=== PATIENT | male | born 1985 | race Caucasian/White ===

== ENCOUNTER 2024-02-13 10:00 | Emergency (ER) | payer SELFPAY ==
[2024-02-13 10:07] VITALS: BP 153/91; PULSE 111; TEMP 36.3; O2SAT 96; BMI 24.3
[2024-02-13 10:13] VITALS: O2SAT 96
--- NOTE | 2024-02-13 10:19 | XR_ITS ---
The [address] [address] Patient Name: BARBARA SONG MRN: [id number] date: 1985 Sex: M Assigned Patient Location: ER Current Patient Location: ER Accession/Order Number: [id number] Exam Date: 02/13/2024 10:30 Report Date: 02/13/2024 11:51 At the request of: DARRIN WATSON Procedure: XR ribs RT min 3V w CXR1V RIGHT RIBS SERIES X-RAY, 5 VIEWS AND CHEST X-RAY ONE VIEW HISTORY: Pain. COMPARISON: None. FINDINGS: There is an acute minimally displaced right posterior lateral eighth rib fracture. There is a possible nondisplaced acute fracture of the right posterior lateral seventh rib. The lungs are clear. There are no pleural effusions. There is no pneumothorax. XR/XR ribs RT min 3V w CXR1V IMPRESSION: Acute minimally displaced right posterior lateral eighth rib fracture with possible nondisplaced acute fracture of the right posterior lateral seventh rib. No pneumothorax. Electronically authenticated by: GUERA CASTRO Date: 02/13/2024 11:51
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
[2024-02-13 12:00] VITALS: BP 120/77; PULSE 64; O2SAT 97
== END 2024-02-13 12:17 | disposition home or self-care (01) ==
PROVIDERS: Emergency Provider Emergency Medicine
DX: S22.31XA Fracture of one rib, right side, initial encounter for closed fracture (principal); V18.0XXA Pedal cycle driver injured in noncollision transport accident in nontraffic accident, initial encounter
CPT/HCPCS: 71101; 94667; 99283

== ENCOUNTER 2024-03-05 14:04 | Emergency (ER) | payer SELFPAY ==
[2024-03-05 14:13] VITALS: BP 160/100; PULSE 94; TEMP 36.4; O2SAT 98; BMI 23.3
[2024-03-05 14:24] VITALS: PULSE 66
--- NOTE | 2024-03-05 15:12 | XR_ITS ---
The [address] [address] Patient Name: BARBARA SONG MRN: [id number] date: 1985 Sex: M Assigned Patient Location: ER Current Patient Location: Accession/Order Number: [id number] Exam Date: 03/05/2024 15:38 Report Date: 03/05/2024 16:27 At the request of: FUAD MAYNARD Procedure: XR chest 2V EXAM: XR chest 2V COMPARISON: 02/13/2024 CLINICAL INDICATION: Pain. FINDINGS: The cardiomediastinal silhouette is within normal limits. No focal consolidation. No pleural effusion. No pneumothorax. No evidence of acute osseous abnormality on today's exam. Subacute nondisplaced right posterior lateral eighth rib fracture better seen on prior rib series. XR/XR chest 2V IMPRESSION: No acute findings. Electronically authenticated by: OLIVIER ALVARADO Date: 03/05/2024 16:27
--- NOTE | 2024-03-05 15:16 | ED_ITS ---
<Statement entered by Emeli Velasco MD - 03/05/24 18:03> This documentation has been reviewed and approved. HPI HPI - General Adult General Chief complaint: Extremity Injury, Upper Stated complaint: RIGHT SIDE RIB PAIN Time Seen by Provider: 03/05/24 15:06 Source: patient Mode of arrival: walk-in Limitations: no limitations History of Present Illness HPI narrative: Is a 38-year-old male presents to the ER with concerns of right-sided rib pain and missing work. Patient was seen in the ER on 02/13/2024 and diagnosed with 2 right rib fractures. Patient notes symptoms were doing better and he was recommended to be off work for approximately 1 month. Patient states he just got hired over a week ago and upon starting new employment he was lifting with his right arm and noticing increased pain in the right chest wall. He denies new injury. States he no longer has his pain medication. He has not taken any Motrin or Tylenol. He notes some shortness of breath only with increased activity and pain to touch. Patient notes pain feels similar to his previous fractured ribs. He denies any fever or cough. He is concerned as he is on a probationary term and there is no light duty at his work to prevent heavy lifting. The patient appears in no distress and does not drive, he walks everywhere. Patient appears mostly concerned about protecting his job for which she was recently hired. Treatments prior to arrival: Reports none Related Data Previous Rx's ?Medication ?Instructions ?Recorded ibuprofen 600 mg tablet 600 mg PO TID PRN pain #30 tabs 03/05/24 Allergies Allergy/AdvReac Type Severity Reaction Status Date / Time No Known Drug Allergies Allergy Verified 02/13/24 10:07 Opioid HPI Opioid Management Most Recent Opioid Data: No Data to Display Review of Systems ROS Constitutional Denies: fever Eyes Denies: change in vision Ears, nose, mouth, and throat Denies: throat pain or neck pain Cardiovascular Reports: chest pain (right sided) Respiratory Reports: shortness of breath; Denies: cough, wheezing, pain on inspiration or chest congestion Gastrointestinal Denies: abdominal pain, nausea or vomiting Musculoskeletal Denies: back pain, neck pain, extremity pain or extremity swelling Integumentary/Breast Denies: rash, itching or redness Neurological Denies: headache Psychiatric Denies: anxiety or mood swings Allergic/Immunologic Denies: hives Exam Narrative Exam Narrative: Nurses notes and vital signs reviewed and patient is not hypoxic. General: The patient appears well and in no apparent distress. Patient is resting comfortably on cart. Skin: Warm, dry, no pallor noted. Head: Normocephalic, atraumatic Neck: Supple, trachea mid-line, no tenderness, no lymphadenopathy Eye: Pupils are equal, round and reactive to light, EOMI Ears, Nose, Mouth, and Throat: External exam unremarkable. Cardiovascular: Regular Rate and Rhythm Respiratory: Patient is in no distress, no accessory muscle use, lungs are clear to auscultation, no wheezing, rales or rhonchi. Chest Wall: Minimal right-sided chest wall discomfort, no palpable crepitus, no evidence of bruising. No paradoxical chest motion. Back: non-tender, no CVA tenderness Musculoskeletal: normal ROM, no tenderness, no swelling GI: Normal bowel sounds, no tenderness to palpation, no masses appreciated. No rebound, guarding, or rigidity noted. Neurological: A&O x4 Psychiatric: Cooperative Constitutional Vital Signs, click to edit/add: Last Vital Signs Temp 97.6 F 03/05/24 14:13 Pulse 66 03/05/24 14:24 Resp 18 03/05/24 14:13 BP 160/100 H 03/05/24 14:13 Pulse Ox 98 03/05/24 14:13 O2 Del Method Room Air 03/05/24 14:13 Course Vital Signs Vital signs: Vital Signs Temperature 97.6 F 03/05/24 14:13 Pulse Rate 94 H 03/05/24 14:13 Respiratory Rate 18 03/05/24 14:13 Blood Pressure 160/100 H 03/05/24 14:13 Pulse Oximetry 98 03/05/24 14:13 Oxygen Delivery Method Room Air 03/05/24 14:13 Temperature 97.6 F 03/05/24 14:13 Pulse Rate 66 03/05/24 14:24 Respiratory Rate 18 03/05/24 14:13 Blood Pressure 160/100 H 03/05/24 14:13 Pulse Oximetry 98 03/05/24 14:13 Oxygen Delivery Method Room Air 03/05/24 14:13 Medical Decision Making MDM Narrative Medical decision making narrative: Patient recommended to Tylenol, ice, Motrin. We discussed his pain, prior fractures. Patient admits that he went to work too soon likely reexacerbating previous injury. 2 view chest x-ray performed. We discussed the need to follow-up with the PCP to discuss when he is cleared to return to work. I will give him 1 week off work so that he can establish follow-up with a new PCP clinic. Patient states he has been turned away from the urgent cares due to the chronicity of his problems. Patient appears in no distress. Preliminary chest x-ray reviewed 2 view, no evidence of pneumothorax, no evidence of further displacement of rib fracture. Radiologist interpretation is pending. The patient is to followup with primary care physician in next 2-3 days or to return to the emergency department should any of the signs or symptoms worsen or new symptoms develop. Patient had questions answered. The patient agrees with the following Diagnosis and Treatment plan and the patient will be discharged home. Imaging Data Chest x-ray: My impression: Reviewed chest x-ray, no infiltrate, no pneumothorax. No evidence of worsening rib fracture right posterior lateral eighth and seventh. Discharge Plan Discharge Stand Alone Forms: Portal Instructions Chief Complaint: Extremity Injury, Upper Clinical Impression: Fracture of rib, Right-sided chest wall pain Patient Disposition: Home, Self-Care Time of Disposition Decision: 15:47 Condition: Good Prescriptions / Home Meds: New ibuprofen 600 mg tablet 600 mg PO TID PRN (Reason: pain) Qty: 30 0RF Print Language: Yi Instructions: Rib Fracture (ED) Referrals: Alberto Tenorio MD [Physician] - As soon as possible BINH GUZMAN [Nurse Practitioner] - As soon as possible Dilia Fry NP [Physician] - As soon as possible
[2024-03-05] MEDS: IBUPROFEN 600 MG TABLET PO (15:21)
[2024-03-05] MEDS: ACETAMINOPHEN 500 MG TABLET 1000 MG PO (15:21)
[2024-03-05 16:07] VITALS: BP 148/100; PULSE 67; O2SAT 98
== END 2024-03-05 16:09 | disposition home or self-care (01) ==
PROVIDERS: Emergency Provider Emergency Medicine
DX: R07.89 Other chest pain (principal); S22.41XD Multiple fractures of ribs, right side, subsequent encounter for fracture with routine healing; X58.XXXD Exposure to other specified factors, subsequent encounter
CPT/HCPCS: 71046; 99285

== ENCOUNTER 2025-06-26 10:52 | Emergency (ER) | payer BC, SELFPAY ==
[2025-06-26] VITALS (25 sets, daily range): BP systolic 110–179; BP diastolic 59–114; PULSE 90–112; TEMP 37.1; O2SAT 95–100; BMI 26.1
--- NOTE | 2025-06-26 11:05 | ECG_ITS ---
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 Measurements Intervals [place] Rate: 98 P: 71 MS: 152 QRS: 95 QRSD: 90 T: 65 QT: 342 QTc: 398 Interpretive Statements 1100 Sinus rhythm 7102 Moderate right axis deviation 9110 normal ECG Compared to ECG 06/26/2022 00:26:57 Sinus tachycardia no longer present Incomplete right bundle-branch block no longer present Electronically Signed On 06-26-2025 11:38:44 EST by SONYA HERNANDES M.D.
--- OUTSIDE RECORDS SUMMARY | 2025-06-26 12:04 | XMS_ITS | Patient Health Record ---
Author Organization [employer] [facility] Address [address] [place] [address] Support Name Relationship Address Phone IRENE PAZ Emergency Contact Unknown [phone]ONG Guarantor Unknown [phone] Reason For Referral No Information Medications Medication SIG (Take, Route, Frequency, Duration) Notes Start Date End Date Status Combigan 0.2-0.5 % Solution 1 drop into affected eye Ophthalmic twice a day (bid) ActiveLumigan 0.01 % Solution1 drop into affected eye in the evening Ophthalmic once a dayActiveLexapro 20 MG Tablet1 tablet Orally once a dayNot-Taking/PRN Geodon 40 MG Capsule1 capsule with food Orally daily; Duration: 30 day(s)Active Social History Tobacco Use: Social History Observation Description Date Details (start date - stop date) Former Smoker NA - NA Social History GeneralSocial InfoQuestionAnswerNotesDepression Screening (PHQ-9):Little interest or pleasure in doing thingsMore than half the daysFeeling down, depressed, or hopelessNearly every dayTrouble falling or staying asleep, or sleeping too muchNearly every dayFeeling tired or having little energyMore than half the daysPoor appetite or overeatingNearly every dayFeeling bad about yourself-or that you are a failure or have let yourself or your family down Several daysTrouble concentrating on things, such as reading the newspaper or watching televisionMore than half the daysMoving or speaking so slowly that other people could have noticed. Or the opposite being so fidgetyor restless that you have been moving around a lot more than usualNearly every dayThoughts that you would be better off , or of hurting yourself in some wayNot at all Total Ubpug53WslbaofrmsqlaBzkgtfskiu severe depressionTobacco Screen:Are you a: former smoker? How long has it been since you last smoked?1-5 yearsAlcohol Screening:Did you have a drink containing alcohol in the past year?Yes? How often did you have a drink containing alcohol in the past year?Four or more times a week (4 points)? How many drinks did you have on a typical day when you were drinking in the past year?3 or 4 (1 point)Ljjxsh0RozupaphqcohbtVyjywotk Problems Problem Type SNOMED Code ICD Code Onset Dates Problem Status W/U Status Risk Notes Problem Mixed bipolar affect mckay disorder, mild (604689072) Bipolar disorder, current episode mixed, mild (F31.61) Activeconfirmed Plan Of Treatment No Information Medical (General) History Medical History History ICD Code VERITO DEPRESSIONGLAUCOMASurgical History Surgery Date(Month/Year) ARTHOSCOPY left knee Hospitalization History Reason Date(Month/Year) Gastric lavage A couple concussions
--- OUTSIDE RECORDS SUMMARY | 2025-06-26 12:05 | XMS_ITS | Patient Health Record ---
Author Organization The [facility] in [place] Address [address] [place] [address] Care Team Providers Care Global Manager Name Role Phone Rachele Wan Primary Care Provider Allergies No Known Allergies Reason For Referral No Information Medications Medication SIG (Take, Route, Frequency, Duration) Notes Start Date End Date Status Combigan 0.2-0.5 % 1 drop into affected eye Opht halmic Twice a day ActiveLumigan 0.01 %1 drop into affected eye in the evening Ophthalmic Once a dayActive Social History Tobacco Use: Social History Observation Description Date Details (start date - stop date) Former Smoker 02/15/1997 - 02/15/2018 Tobacco Control (Standard) Question Answer Notes Tobacco use: Former smoker When did you start smoking?02/15/1997When did you stop smoking?02/15/2018AUDIT-C (Standard) Question Answer Notes Did you have a drink containing alcohol in the p ast year? Yes How often did you have six or more drinks on one occasion in the past year?Never (0 point)How many drinks did you have on a typical day when you were drinking in the past year?1 or 2 drinks (0 point)How often did you have a drink containing alcohol in the past year?2 to 3 times a week (3 points)Mtzoov3Hrsmjgszzgfruj Negative Problems Problem Type SNOMED Code ICD Code Onset Dates Problem Status W/U Status Risk Notes Problem Glaucoma (23485191) Glaucoma (H40.9) ActiveconfirmedProblemmigraine (disorder) (23690121)Migraines (G43.909)Active confirmedProblemMixed anxiety and depressive disorder (631523380)Anxiety and depression (F41.9)Activeconfirmed Plan Of Treatment Pending Test Test Name Order Date XR chest 2V 04/05/2024 Insurance Providers Payer Name Payer Address Payer Phone Subscriber Number Group Number Insured Name Patient Relationship to Insured Coverage Start Date Coverage End Date [employer] PPO PLUS LOCAL PLAN [address] [place] [address] [id number] Matt Bergelf - patient is the insured Medical (General) History Medical History History ICD Code Glaucoma H40.9 Migraines G43.909 Anxiety and depression F41.9 Surgical History Surgery Date(Month/Year) [place] teeth left knee arthroscopic surgery
[2025-06-26 12:39] LABS: Hematocrit 42.5 % (42.0-54.0); Hemoglobin 14.7 g/dL (14.0-18.0); Immature Granulocytes Abs Auto 0.01 10^3/uL (0.00-0.03); Immature Granulocytes Pct Auto 0.1 % (0.0-0.5); Lymphocytes Absolute Auto 1.0 10^3/uL (1.2-3.8); Mean Corpuscular HGB Conc 34.6 g/dL (29.9-35.2); Mean Corpuscular Hemoglobin 30.8 pg (25.9-34.0); Mean Corpuscular Volume 89.1 fL (80.0-94.0); Platelet Count 312 10^3/uL (150-450); Red Blood Count 4.77 10^6/uL (4.70-6.10); White Blood Count 7.2 10^3/uL (4.0-11.0)
[2025-06-26] MEDS: 0.9 % SODIUM CHLORIDE 1,000 ML 1000 ML IV (12:47)
[2025-06-26 12:54] LABS: Alanine Aminotransferase 57 U/L (16-63); Albumin Globulin Ratio 1.2; Albumin Level 4.2 g/dL (3.4-5.0); Alkaline Phosphatase 93 U/L (46-116); Anion Gap 14.2; Aspartate Amino Transferase 38 U/L (15-37); Blood Urea Nitrogen 15.0 mg/dL (7.0-18.0); Calcium 9.5 mg/dL (8.5-10.1); Carbon Dioxide 24.8 mmol/L (21.0-32.0); Chloride 99 mmol/L (98-107); Estimated GFR (African America >60 (>=60 mL/min/1.73m^2); Estimated GFR (Non-African Ame >60 (>=60 mL/min/1.73m^2); Globulin 3.5 g/dL; Glucose 143 mg/dL (74-106); Potassium 4.0 mmol/L (3.5-5.1); Sodium 134 mmol/L (136-145); Total Protein 7.7 g/dL (6.4-8.2)
--- NOTE | 2025-06-26 13:20 | XR_ITS ---
[place] [id number] Patient Name: BARBARA SONG MRN: [id number] date: 1985 Sex: M Assigned Patient Location: ER Current Patient Location: ED.MAIN Accession/Order Number: [id number] Exam Date: 06/26/2025 13:13 Report Date: 06/26/2025 13:41 At the request of: JEFRY RODRIGUEZ DO Procedure: XR chest 2V XR chest 2V 06/26/2025 1:21 PM SIGNS AND SYMPTOMS: ^chest pain PROTOCOL: Frontal and lateral radiograph of the chest COMPARISON: 03/05/2024 FINDINGS: The trachea is midline. The heart and mediastinal structures are within normal limits. The lung parenchyma is clear. The bony thorax is intact. Remote healed or healing right-sided rib fractures are redemonstrated bilaterally. XR/XR chest 2V IMPRESSION: No acute cardiopulmonary pathology. Impression dictated by: Chad Blunt M.D. 06/26/2025 1:41 PM Dictation Location: [facility] Electronically authenticated by: [id number] Date: 06/26/2025 13:41
[2025-06-26 13:26] LABS: SARS-CoV-2 Ag NEGATIVE (NEGATIVE)
[2025-06-26] MEDS: AZITHROMYCIN 250 MG TABLET 500 MG PO (13:46)
--- NOTE | 2025-06-26 16:56 | ED_ITS ---
HPI HPI - General Adult General Chief complaint: Chest Pain Stated complaint: CHEST PAIN SOB L SIDE NUMBNESS Time Seen by Provider: 06/26/25 11:52 Source: patient Mode of arrival: walk-in History of Present Illness HPI narrative: Patient is a 40-year-old male presenting to the emergency department for 3-day history of upper respiratory symptoms such as cough, congestion, and myalgias. He states that over the last 24 hours he has been having increasing shortness of breath and he feels dehydrated. He has been drinking plenty of fluids, but still feels rundown. He is otherwise healthy with no chronic medical conditions. He does not smoke and has no history of asthma/COPD. He has no current chest pain. He has no nausea or vomiting. Related Data Previous Rx's ?Medication ?Instructions ?Recorded azithromycin 250 mg tablet 250 mg PO DAILY 5 days #5 t abs 06/26/25 (Zithromax Z-Josh) Allergies Allergy/AdvReac Type Severity Reaction Status Date / Time No Known Drug Allergies Allergy Verified 02/13/24 10:07 Review of Systems ROS Status of ROS 10 or more systems reviewed and unremark able except as noted in history and below PFSH PFSH Social History Little interest or pleasure in doing things: not at all Feeling down, depressed, or hopeless: not at all Exam Narrative Exam Narrative: CONSTITUTIONAL: Patient appears ill but nontoxic, answering questions and following commands appropriately SKIN: Was warm and mildly diaphoretic. EYES: Sclerae white. EARS, NOSE, THROAT: Moist oral mucosa. No tonsillar enlargement or exudates. RESPIRATORY: Clear to auscultation bilaterally, no wheezes, crackles, or stridor, no use of accessory muscles CARDIOVASCULAR: Tachycardic rate and regular rhythm. There is no S3, S4, murmur, rub. GASTROINTESTINAL: Abdomen is soft, nontender, nondistended. MUSCULOSKELETAL: No peripheral edema. NEUROLOGIC: Patient is awake and alert. Facies were symmetrical. Constitutional Vital Signs, click to edit/add: Last Vital Signs Temp 98.7 F 06/26/25 10:55 Pulse 105 H 06/26/25 13:20 Resp 15 06/26/25 13:20 BP 122/75 06/26/25 13:11 Pulse Ox 99 06/26/25 13:53 O2 Del Method Room Air 06/26/25 10:55 Course Vital Signs Vital signs: Vital Signs Temperature 98.7 F 06/26/25 10:55 Pulse Rate 101 H 06/26/25 10:55 Respiratory Rate 18 06/26/25 10:55 Blood Pressure 148/104 H 06/26/25 10:55 Pulse Oximetry 97 06/26/25 10:55 Oxygen Delivery Method Room Air 06/26/25 10:55 Temperature 98.7 F 06/26/25 10:55 Pulse Rate 105 H 06/26/25 13:20 Respiratory Rate 15 06/26/25 13:20 Blood Pressure 122/75 06/26/25 13:11 Pulse Oximetry 99 06/26/25 13:53 Oxygen Delivery Method Room Air 06/26/25 10:55 Medical Decision Making MDM Narrative Medical decision making narrative: Patient is a 40-year-old male presenting to the emergency department for 3-day history of URI symptoms. Vital signs on arrival were significant for tachycardia, otherwise within normal limits. He is afebrile and hemodynamically stable. He overall appears ill, but nontoxic. Clinically, he does appear to be mildly dehydrated and is tachycardic to 105bpm at rest. My impressions of the patient's symptoms are secondary to viral URI, secondary to etiology such as COVID/influenza. However, I am concerned for possible pneumonia. Therefore, chest x-ray was ordered. IV was established and laboratory studies obtained. He was given 1 L bolus of normal saline. Chest x-ray independently reviewed/interpreted by myself demonstrated no acute cardiopulmonary process. 12 Lead EKG: Normal sinus rhythm at a rate of 98. Normal axis. No ST segment elevations. QRS, NM, and QTc interval within normal limits. Final impression: normal sinus rhythm without evidence of acute myocardial ischemia Laboratory studies were unremarkable. No significant electrolyte or metabolic derangement. No evidence of acute kidney injury. No anemia, leukocytosis, or thrombocytopenia. No significant transaminitis or hyperbilirubinemia. COVID/flu swabs negative. On reevaluation, patient states he feels improved after IV fluids. His tachycardia has resolved, he is now 85 bpm at rest. Though the patient has a negative workup, I did elect to treat him for atypical pneumonia. He was given a dose of azithromycin 500mg here in the ED, and a prescription for azithromycin 250 mg daily x 4 days. Instructed to return to the emergency department should his symptoms worsen. I recommended he follow-up with his PCP in the next 3 to 5 days for checkup. Patient understands and agrees to plan. FINAL IMPRESSION: #Acute viral URI, concern for atypical pneumonia DISPOSITION: Discharged home CONDITION: Good Lab Data Lab results reviewed: Yes I reviewed the patient's lab results Labs: Lab Results 06/26/25 06/26/25 Range/Units 12:00 13:01 WBC 7.2 (4.0-11.0) 10^3/uL RBC 4.77 (4.70-6.10) 10^6/uL Hgb 14.7 (14.0-18.0) g/dL Hct 42.5 (42.0-54.0) % MCV 89.1 (80.0-94.0) fL MCH 30.8 (25.9-34.0) pg MCHC 34.6 (29.9-35.2) g/dL RDW 11.8 (11.0-15.0) % Plt Count 312 (150-450) 10^3/uL MPV 9.3 L (9.5-13.5) fL Neut % (Auto) 80.4 H (43.0-75.0) % Lymph % (Auto) 13.3 L (20.5-60.0) % Marshall % (Auto) 5.4 (1.7-12.0) % Eos % (Auto) 0.4 L (0.9-7.0) % Baso % (Auto) 0.4 (0.2-2.0) % Neut # (Auto) 5.8 (1.4-6.5) 10^3/uL Lymph # (Auto) 1.0 L (1.2-3.8) 10^3/uL Marshall # (Auto) 0.4 (0.3-0.8) 10^3/uL Eos # (Auto) 0.0 (0.0-0.7) 10^3/uL Baso # (Auto) 0.0 (0.0-0.1) 10^3/uL Abs Immat Gran (auto) 0.01 (0.00-0.03) 10^3/uL Imm/Tot Granulo (auto) 0.1 (0.0-0.5) % Sodium 134 L (136-145) mmol/L Potassium 4.0 (3.5-5.1) mmol/L Chloride 99 (98-107) mmol/L Carbon Dioxide 24.8 (21.0-32.0) mmol/L Anion Gap 14.2 BUN 15.0 (7.0-18.0) mg/dL Creatinine 0.97 (0.70-1.30) mg/dL Est GFR ( Amer) >60 (>=60 mL/min/1.73m^2) Est GFR (Non-Af Amer) >60 (>=60 mL/min/1.73m^2) BUN/Creatinine Ratio 15.5 Glucose 143 H (74-106) mg/dL Calcium 9.5 (8.5-10.1) mg/dL Total Bilirubin 1.6 H (0.2-1.0) mg/dL AST 38 H (15-37) U/L ALT 57 (16-63) U/L Alkaline Phosphatase 93 (46-116) U/L Troponin I High Sens 7.5 (4.0-76.1) pg/mL Total Protein 7.7 (6.4-8.2) g/dL Albumin 4.2 (3.4-5.0) g/dL Globulin 3.5 g/dL Albumin/Globulin Ratio 1.2 Influenza Type A Ag Negative Influenza Type B Ag Negative SARS-CoV-2 Ag (CV2AG) Negative (NEGATIVE) Imaging Data Chest x-ray: Attestation: I personally reviewed and interpreted this imaging study as follows: Radiologist's impression: ITS Impressions Chest X-Ray 06/26/25 13:20 IMPRESSION: No acute cardiopulmonary pathology. Impression dictated by: Chad Blunt M.D. 06/26/2025 1:41 PM Dictation Location: [place] [address] Electronically authenticated by: [id number] Y Date: 06/26/2025 13:41 ECG Data Attestation: I personally reviewed and interpreted this ECG as follows: Discharge Plan Discharge Chief Complaint: Chest Pain Clinical Impression: Atypical pneumonia Patient Disposition: Home, Self-Care Time of Disposition Decision: 13:36 Condition: Good Mode of Transportation: Private Vehicle Prescriptions / Home Meds: New azithromycin [Zithromax Z-Josh] 250 mg tablet 250 mg PO DAILY 5 Days Qty: 5 0RF Print Language: Prydeinig Instructions: Pneumonia (ED) Additional Instructions: Follow up with a family DR, list of providers provided. Return to [facility] for any problems or concerns Referrals: Physician,Non-Staff, MD [Primary Care Provider] - 1 week Discharge Date/Time: 06/26/25 13:55
== END 2025-06-26 13:55 | disposition home or self-care (01) ==
PROVIDERS: Emergency Provider Student in an Organized Health Care Education/Training Program
DX: J18.9 Pneumonia, unspecified organism (principal)
CPT/HCPCS: 36415; 71046; 80053; 84484; 85025; 87804; 87811; 93005; 99284; 99285